=== PATIENT | female | born 1965 | race Caucasian/White ===

== ENCOUNTER 2022-12-06 18:38 | Emergency (ER) | payer BC, SELFPAY ==
[2022-12-06 18:42] VITALS: BP 143/83; PULSE 77; RESP 16; TEMP 36.6; O2SAT 99
--- NOTE | 2022-12-06 19:44 | ED.GENADULT ---
HPI - General Adult General Chief complaint: Extremity Problem,Nontraumatic Stated complaint: left leg swelling/possible DVT Time Seen by Provider: 12/06/22 19:29 History of Present Illness HPI narrative: 57 year old female presented with left lower extremity swelling. Per patient, she has been feeling like her left lower extremity has been more swollen and tight when compared to the right lower extremity. Presented to the ED for further evaluation. She denied fevers/chills, chest pain, shortness of breath, hemoptysis, recent injury to left lower extremity, fevers/chills. Related Data Allergies Allergy/AdvReac Type Severity Reaction Status Date / Time latex Allergy Severe facial Verified 12/06/22 18:39 swelling Penicillins Allergy Unknown Hives Verified 12/06/22 18:39 [facility] Past Medical History Medical History Basal cell carcinoma on scalp (2006) History of inflammation of sacroiliac joint Seasonal allergies Surgical History Surgical History [place] teeth extracted Family History Family History Father Melanoma Hypertension Aortic valve stenosis Thyroid tumor, benign Mother Breast cancer Hypothyroid Grandparent Breast cancer Grandparent Uterine cancer Grandparent Malignant neoplasm of prostate Grandparent Lymphoma Social History Social History (Updated 01/26/22 @ 16:26 by Claire Cochran [facility]) Smoking status: Never smoker Alcohol intake: never Substance use: never Substance use type: does not use Exam Narrative: General: Alert, calm and cooperative, no acute distress, phonating, sitting comfortably during visit HEENT: Pupils equal round and reactive to light, extra ocular movements intact, no conjunctival injection, head atraumatic, neck supple without meningismus Cardiovascular: Regular rate and rhythm, no visible jugular venous distension Respiratory: Lungs clear to auscultation bilaterally, no wheezing/rales/rhonchi Abdominal: soft, non-tender, non-distended, no guarding, no rebound/peritoneal signs, no costovertebral tenderness to palpation Back: no midline tenderness to palpation, no step offs Extremities: No edema, no erythema, no crepitus, soft compartments, palpable peripheral pulses, warm, well perfused, no tenderness to bilateral calves, extension and flexion preserved, full strength throughout Neurological: Alert, moving all extremities symmetrically, ambulating without deficit Course Vital Signs Vital signs: Vital Signs Temperature 97.8 F 12/06/22 18:42 Pulse Rate 77 12/06/22 18:42 Respiratory Rate 16 12/06/22 18:42 Blood Pressure 143/83 H 12/06/22 18:42 Pulse Oximetry 99 12/06/22 18:42 Oxygen Delivery Room Air 12/06/22 18:42 Temperature 97.8 F 12/06/22 18:42 Pulse Rate 77 12/06/22 18:42 Respiratory Rate 16 12/06/22 18:42 Blood Pressure 143/83 H 12/06/22 18:42 Pulse Oximetry 99 12/06/22 18:42 Oxygen Delivery Room Air 12/06/22 18:42 Medical Decision Making MDM Narrative Medical decision making narrative: 57 year old female presented with several days of left lower extremity swelling. Physical exam benign, no significant difference in size compared to right lower extremity, no erythema, no fluctuance, palpable pulses, extremities warm, compartments soft, flexion and extension preserved, full strength throughout, vitals stable. Cellulitis considered, unlikely at this time. DVT considered - will give patient 1mg/kg Lovenox, DVT US was arranged for the morning. Patient expressed understanding. The patient tolerated oral intake, is alert and oriented, speaking with clear speech, ambulated with steady gait, and has remained hemodynamically stable throughout the ED visit. Has close follow up with primary care provider. Areas of diagnostic uncertainty discussed and strict
[2022-12-06] MEDS: ENOXAPARIN 100 MG/ML SYRINGE 88 MG SUB-Q (19:53)
== END 2022-12-06 20:02 | disposition home or self-care (01) ==
LOC: ANHED 19:43
PROVIDERS: Emergency Provider Emergency Medicine; PCP Family Medicine
DX: R22.42 Localized swelling, mass and lump, left lower limb (principal); Z85.828 Personal history of other malignant neoplasm of skin
CPT/HCPCS: 96372; 99283; J1650

== ENCOUNTER 2022-12-07 07:15 | Outpatient (CLI) | payer BC, SELFPAY ==
--- NOTE | ~2022-12-07 | US_ITS ---
EXAMINATION:US venous doppler LE LT INDICATION:Left lower extremity edema TECHNIQUE: Multiple grayscale, color flow and Doppler images of the left lower extremity deep venous systems were obtained and reviewed. COMPARISON:No prior studies for comparison. FINDINGS: The common femoral, superficial femoral and popliteal veins demonstrate normal respiratory variation, augmentation and compressibility. Color flow is also seen within the posterior tibial, pe roneal, greater saphenous and profunda veins. IMPRESSION: 1: No lower extremity deep venous thrombosis. Reviewed, dictated and finalized at location A.
== END 2022-12-07 07:16 | disposition home or self-care (01) ==
PROVIDERS: PCP Family Medicine; Visit Provider Family Medicine
DX: M79.89 Other specified soft tissue disorders (principal)
CPT/HCPCS: 93971

== ENCOUNTER → 2023-03-27 08:20 | Outpatient (CLI) | payer BC, SELFPAY ==
--- NOTE | ~2023-03-27 | MM_ITS ---
EXAMINATION: MM screening melodie BI w merry HISTORY: Screening mammogram TECHNIQUE: Craniocaudal and mediolateral oblique 3-D tomosynthesis images were obtained and synthetic 2-D images were generated. CAD analysis was submitted and interpreted. COMPARISON: 10/04/2011 diagnostic left mammogram 09/12/2011 bilateral screening mammogram BREAST PARENCHYMAL COMPOSITION: There are scattered areas of fibroglandular density. FINDINGS: Scattered bilateral benign calcifications. There is no evidence of suspicious mass, calcifi cation, or architectural distortion to suggest malignancy in either breast. There has been no suspici ous interval change. IMPRESSION: 1. No mammographic evidence of malignancy. 2. Recommend routine screening mammography in one year. BI-RADS Category 2: Benign finding(s). Reviewed, dictated and finalized at location B. DENTIAL SALES REPRESENTATIVE
== END ==
PROVIDERS: PCP Family Medicine; Visit Provider Physician Assistant
DX: Z12.31 Encounter for screening mammogram for malignant neoplasm of breast (principal)
CPT/HCPCS: 77063; 77067

== ENCOUNTER 2023-07-28 19:28 | Emergency (ER) | payer BC, SELFPAY ==
--- NOTE | 2023-07-28 19:41 | ED.FEMALEGU ---
HPI - Female Genitourinary General Chief complaint: Urogenital-Female Stated complaint: UTI symptoms Source: patient and RN notes reviewed Mode of arrival: ambulatory Limitations: no limitations History of Present Illness HPI Narrative: 57-year-old male presented for complaint urinary frequency, urgency, and spasm sensation. Worsening over the past 2 days. Endorses blood in urine today. Denies nausea, vomiting, abdominal pain, flank pain, constipation, diarrhea, fevers or chills. Related Data Allergies Allergy/AdvReac Type Severity Reaction Status Date / Time latex Allergy Severe facial Verified 07/28/23 19:35 swelling Penicillins AdvReac Mild Hives Verified 07/28/23 19:35 Review of Systems Review of Systems: CONSTITUTIONAL: Denies body aches, fever, chills, or sweats. CARDIOVASCULAR: Denies chest pain, palpitations, or edema. RESPIRATORY: Denies cough or dyspnea. GASTROINTESTINAL: Denies abdominal pain, nausea, vomiting, or diarrhea. GENITOURINARY: Reports dysuria, frequency, urgency, hematuria, denies flank pain SKIN: Denies rash, itching, or wounds. MUSCULOSKELETAL: Denies back pain or myalgia. [facility] Past Medical History Medical History Basal cell carcinoma on scalp (2006) History of inflammation of sacroiliac joint Seasonal allergies Surgical History Surgical History [place] teeth extracted Family History Family History Father Melanoma Hypertension Aortic valve stenosis Thyroid tumor, benign Mother Breast cancer Hypothyroid Grandparent Breast cancer Grandparent Uterine cancer Grandparent Malignant neoplasm of prostate Grandparent Lymphoma Social History Social History Smoking status: Never smoker Alcohol intake: never Substance use: never Substance use type: does not use Comments At time of signature, I have reviewed and agree with nursing past medical, surgical, social and family history unless otherwise noted. Please see nursing chart for further information. There is no relevant family history pertinent to the presenting complaint Exam Narrative: GENERAL: Well-appearing ENT: Mucous membranes pink and moist. NECK: Normal AROM. Supple. CHEST: No respiratory distress. Clear to auscultation. HEART: Regular rate and rhythm. ABDOMEN: Soft, nontender, nondistended, normal active bowel sounds. No CVA tenderness SKIN: Warm, dry, no rash. NEURO: No focal deficits. Alert and oriented x3. Gait steady. PSYCH: Normal affect. Course Course Emergency Course: Patient is aware of diagnosis, understands and agrees to treatment plan. Anticipatory guidance given. Patient agrees to follow-up as directed and is aware of reasons to seek care at the emergency department. Portions of this record may have been created with voice recognition software Level of Care: Express Care Visit Vital Signs Vital signs: Reviewed MDM - Female Genitourinary MDM Narrative Medical decision making narrative: Discussed physical exam findings and urine results, reviewed Rx. Advised supportive measures and signs/symptoms to go to the ER. Pt is appropriate for outpt treatment and f/u. Differential Diagnosis Differential diagnosis: Likely urinary tract infection, bacterial vaginosis, vaginitis and cystitis Discharge Plan Discharge Clinical Impression: Urinary tract infection Patient Disposition: Home, Self-Care Condition: Stable Instructions: Antibiotic Form, Urinary Tract Infection in Women (ED) Additional Instructions: Take the antibiotic as prescribed The urine will be sent of for a culture to identify what type of bacteria is causing your infection. If the culture shows that the antibiotic will not get rid of your infection, you will be notif
[2023-07-28 19:45] VITALS: BP 119/68; PULSE 75; RESP 16; TEMP 36.4; O2SAT 100
== END 2023-07-28 20:04 | disposition home or self-care (01) ==
PROVIDERS: Emergency Provider Nurse Practitioner Family; PCP Family Medicine
DX: N39.0 Urinary tract infection, site not specified (principal); B96.4 Proteus (mirabilis) (morganii) as the cause of diseases classified elsewhere; Z85.828 Personal history of other malignant neoplasm of skin
CPT/HCPCS: 81003; 87077; 87086; 87088; 87186; 99213; G0463

== ENCOUNTER 2023-10-19 00:46 | Day surgery (SDC) | payer BC, SELFPAY ==
[2023-10-04 09:55] VITALS: BMI 28.9
[2023-10-19 06:47] VITALS: BP 104/73; PULSE 79; RESP 20; TEMP 36.4; O2SAT 99; BMI 30.2
[2023-10-19] MEDS: LACTATED RINGERS 1,000 ML 150 ML IV CONT (07:05)
--- NOTE | 2023-10-19 07:24 | WPDANESEPPF ---
Anes - Initial Pre Proc Eval Procedure: Operation Date: 10/19/23 08:00 Proposed Procedures p Screening Colonoscopy - Jase Madden MD Date/Time: 10/19/23 07:24 Surgeon: Jase Madden MD Pre Op Diagnosis: neoplasm screening Patient Data Age: 58 Gender: F Height: 1.73 m Weight: 90.1 kg Last Vital Signs Temp 97.5 F L 10/19/23 06:47 Pulse 79 10/19/23 06:47 Resp 20 10/19/23 06:47 BP 104/73 10/19/23 06:47 Pulse Ox 99 10/19/23 06:47 O2 Del Method Room Air 10/19/23 06:47 Allergies Allergy/AdvReac Type Severity Reaction Status Date / Time latex Allergy Severe facial Verified 10/19/23 06:39 swelling Penicillins AdvReac Mild Hives Verified 10/19/23 06:39 Home Medications Medication Instructions Recorded Confirmed Type No Home Medications 10/04/23 10/19/23 History Patient hx anesthesia problems: none Family hx anesthesia problems: none Results Review: All pre-operative results and documents have been reviewed as part of the pre-operative evaluation. [facility] Past Medical History Medical History Basal cell carcinoma on scalp (2006) History of inflammation of sacroiliac joint Seasonal allergies Surgical History Surgical History [place] teeth extracted Family History Family History Father Melanoma Hypertension Aortic valve stenosis Thyroid tumor, benign Mother Breast cancer Hypothyroid Grandparent Breast cancer Grandparent Uterine cancer Grandparent Malignant neoplasm of prostate Grandparent Lymphoma Social History Social History Smoking status: Never smoker Alcohol intake: current Alcohol use details: socially Substance use: never Substance use type: does not use Living arrangements: with family Spiritual care concerns: No Anes - Eval Final PreProcedure Day of Procedure 10/19/23 07:24 Patient weight: obese Heart: regular rate and rhythm Lungs: clear to auscultation Airway: Mallampati scale class II Neurological: alert and oriented Last oral intake: >/= 8 hours ASA classification: II Emergent: no Anesthetic plan: proceed Anesthesia type and monitoring: general GIVS and standard monitoring Results Review: All pre-operative results and documents have been reviewed as part of the pre-operative evaluation. Informed Consent: The patient's anesthetic plan and its attendant risks and benefits were discussed with the patient/family/POA. Questions were solicited and answers provided to the satisfaction of the patient/family/POA.
--- NOTE | 2023-10-19 07:50 | P.HP_ITS ---
History of Present Illness History of Present Illness Consent: Risks, benefits, and alternatives have been discussed and questions answered. Patient agrees to proceed with procedure. Chief complaint: neoplasm screening Narrative: Kamilla Vasquez is a 58 year old female here for screening colonoscopy, last one 7 years ago Review of Systems Review of Systems: All systems reviewed & are unremarkable except as noted in HPI and below PMFSH Past Medical History Medical History (Updated 10/19/23 @ 07:51 by Jase Madden MD) Basal cell carcinoma on scalp (2006) Colon cancer screening History of inflammation of sacroiliac joint Seasonal allergies Surgical History Surgical History [place] teeth extracted Family History Family History Father Melanoma Hypertension Aortic valve stenosis Thyroid tumor, benign Mother Breast cancer Hypothyroid Grandparent Breast cancer Grandparent Uterine cancer Grandparent Malignant neoplasm of prostate Grandparent Lymphoma Social History Social History Smoking status: Never smoker Alcohol intake: current Alcohol use details: socially Substance use: never Substance use type: does not use Living arrangements: with family Spiritual care concerns: No Meds Home Medications and Allergies Home Medications Medication Instructions Recorded Confirmed Type No Home Medications 10/04/23 10/19/23 History Allergies Allergy/AdvReac Type Severity Reaction Status Date / Time latex Allergy Severe facial Verified 10/19/23 06:39 swelling Penicillins AdvReac Mild Hives Verified 10/19/23 06:39 Vital Signs Vital Signs - 24 hr 10/19/23 06:47 Temperature 97.5 F L Pulse Rate 79 Respiratory Rate 20 Blood Pressure 104/73 Pulse Oximetry 99 Oxygen Delivery Room Air Exam Const: General: comfortable and no acute distress HENMT: Face/Nose/Sinus: Normal nares present Eyes: General: appearance normal, both eyes and all related structures Neck: Neck: no JVD Resp: Auscultation: clear to auscultation bilaterally Cardio: Rate: regular rate Rhythm: regular rhythm GI: Inspection: non-distended GI Palp: Yes Soft to palpation Skin: General skin exam: normal color Neuro: General: gait normal Speech: normal speech Extrem: General: normal to inspection Psych: Mental Status: mental status grossly normal Assessment and Plan Assessment and plan (1) Colon cancer screening: Code(s): Z12.11 - Encounter for screening for malignant neoplasm of colon Status: Acute Assessment and Plan: colonoscopy
[2023-10-19 08:07] VITALS: BP 87/60; PULSE 65; RESP 17; O2SAT 98
[2023-10-19 08:17] VITALS: BP 92/55; PULSE 65; RESP 15; O2SAT 100
[2023-10-19 08:27] VITALS: BP 99/58; PULSE 59; RESP 19; O2SAT 100
== END 2023-10-19 08:38 | disposition home or self-care (01) ==
PROVIDERS: PCP Family Medicine; Visit Provider Internal Medicine Gastroenterology
PROC: 0DJD8ZZ Inspection of Lower Intestinal Tract, Via Natural or Artificial Opening Endoscopic (ICD-10-PCS; CPT 45378; principal; 2023-10-19 08:00)
DX: Z12.11 Encounter for screening for malignant neoplasm of colon (principal); D12.3 Benign neoplasm of transverse colon; D17.5 Benign lipomatous neoplasm of intra-abdominal organs; E66.9 Obesity, unspecified; Z68.30 Body mass index [BMI] 30.0-30.9, adult
CPT/HCPCS: 45381; 45385; 88305; J2704; J7120

== ENCOUNTER 2024-05-04 14:24 | Outpatient (CLI) | payer BC, SELFPAY ==
--- NOTE | ~2024-05-04 | MM_ITS ---
EXAMINATION: MM screening melodie BI w merry HISTORY: Screening TECHNIQUE: Craniocaudal and mediolateral oblique 3-D tomosynthesis images were obtained and synthetic 2-D images were generated. CAD analysis was submitted and interpreted. COMPARISON: Comparison to multiple prior studies sequentially, with oldest reviewed study dated 09/11. BREAST PARENCHYMAL COMPOSITION: There are scattered areas of fibroglandular density. FINDINGS: There is no evidence of suspicious mass, calcification, or architectural distortion to sugg est malignancy in either breast. There has been no suspicious interval change. IMPRESSION: 1. No mammographic evidence of malignancy. 2. Recommend routine screening mammography in one year. BI-RADS Category 1: Negative Reviewed, dictated and finalized at location B. S ANALYST
== END 2024-05-04 14:25 | disposition home or self-care (01) ==
LOC: ANHIMG 14:27
PROVIDERS: PCP Family Medicine; Visit Provider Family Medicine
DX: Z12.31 Encounter for screening mammogram for malignant neoplasm of breast (principal)
CPT/HCPCS: 77063; 77067

== ENCOUNTER 2024-05-05 09:24 | Emergency (ER) | payer BC, SELFPAY ==
[2024-05-05 09:28] VITALS: BP 121/77; PULSE 65; RESP 18; TEMP 36.9; O2SAT 100
--- NOTE | 2024-05-05 09:30 | ED.FEMALEGU ---
HPI - Female Genitourinary General Chief complaint: Urogenital-Female Stated complaint: UTI Time Seen by Provider: 05/05/24 09:30 Source: patient Mode of arrival: ambulatory Limitations: no limitations History of Present Illness HPI Narrative: Kamilla is a 58-year-old female patient presenting to the clinic today with complaints of a possible urinary tract infection. She reports symptoms started yesterday with urgency and frequency of urination. Is also reporting some mild low back pain. Noticed some blood in her urine this morning. Denies any fevers, chills, or abdominal pain. Related Data Home Medications ?Medication ?Instructions ?Recorded ?Confirmed ?Last Taken ?Type multivitamin 1 tablet PO DAILY 03/23/24 05/05/24 Unknown History Allergies Allergy/AdvReac Type Severity Reaction Status Date / Time latex Allergy Severe facial Verified 05/05/24 09:47 swelling Penicillins AdvReac Mild Hives Verified 05/05/24 09:47 Review of Systems Review of Systems: Pertinent positives per HPI. Patient denies any fever, chills, rash, headache, visual changes, dizziness, cough, runny nose, sore throat, shortness of breath, chest pain, palpitations, nausea, vomiting, diarrhea, constipation, abdominal pain PMFSH Past Medical History Medical History Colon cancer screening History of inflammation of sacroiliac joint Seasonal allergies Basal cell carcinoma on scalp (2006) Surgical History Surgical History [place] teeth extracted Family History Family History Father Melanoma Hypertension Aortic valve stenosis Thyroid tumor, benign Mother Breast cancer Hypothyroid Grandparent Breast cancer Grandparent Uterine cancer Grandparent Malignant neoplasm of prostate Grandparent Lymphoma Social History Social History Smoking status: Never smoker Alcohol intake: current Alcohol use details: socially Substance use: never Substance use type: does not use Living arrangements: with family Spiritual care concerns: No Comments At the time of my signature, I reviewed and agree with the nursing past medical, surgical, social, and family history. There is no relevant family history pertinent to the patient complaint. Exam Narrative: General: Well-developed, well nourished, in no apparent distress. Head: Normocephalic, atraumatic. Cardio: Regular rate and rhythm, s1 and s2 normal, no murmur appreciated. Resp: Clear to auscultation bilaterally, no rhonchi, rales, wheezing or rubs. Abdomen: Soft, pliable, bowel sounds present in all quadrants, non-tender to palpation, no organomegly, left lower CVAT tenderness. Course Course Emergency Course: Portions of this record may have been created with voice recognition software. Level of Care: Express Care Visit Vital Signs Vital signs: Vital Signs Temperature 36.9 C 05/05/24 09:28 Pulse Rate 65 05/05/24 09:28 Respiratory Rate 18 05/05/24 09:28 Blood Pressure 121/77 05/05/24 09:28 Pulse Oximetry 100 05/05/24 09:28 Oxygen Delivery Room Air 05/05/24 09:28 Temperature 36.9 C 05/05/24 09:28 Pulse Rate 65 05/05/24 09:28 Respiratory Rate 18 05/05/24 09:28 Blood Pressure 121/77 05/05/24 09:28 Pulse Oximetry 100 05/05/24 09:28 Oxygen Delivery Room Air 05/05/24 09:28 Vital signs reviewed MDM - Female Genitourinary MDM Narrative Medical decision making narrative: At the time of visit patient is resting comfortably on the exam table. Patient appears to be nontoxic. Labs: Urinalysis was positive for leukocytes, blood, and protein. We will send urine for culture Plan: I suspect patient has urinary tract infection. Prescription for Bactrim was sent to the pharmacy. Supportive measures were discussed with the patient and they voiced understanding discharge instructions and agrees to treatment plan. Return precautions reviewed Differential Diagnosis Differential diagnosis: Likely urinary tract infection and cystitis Lab Data Labs: Lab Results 05/05/24 Range/Units 09:40 POC Urine Color Ama POC Urine Clarity Cloudy POC Urine pH 6.5 POC Ur Specif [place] 1.025 POC Urine Protein 2+ (Negative) POC Ur Glucose (UA) Negative (Negative) POC Urine Ketones Negative (Negative) POC Urine Blood 3+ (Negative) POC Urine Nitrite Negative (Negative) POC Urine Bilirubin Negative (Negative) POC Urine Urobilinogen 0.2 POC U Leukocyte Esteras Trace (Negative) Discharge Plan Discharge Clinical Impression: UTI (urinary tract infection) Qualifiers: Urinary tract infection type: acute cystitis Hematuria presence: with hematuria Qualified Code(s): N30.01 - Acute cystitis with hematuria Patient Disposition: Home, Self-Care Condition: Stable Instructions: Antibiotic Form, Urinary Tract Infection in Women (ED) Additional Instructions: Urinalysis shows trace of white blood cells, blood, and protein. We will send urine for culture Take Bactrim as prescribed Increase fluids and stay well hydrated Wipe front to back. May use wet wipes. Avoid tub baths If sexually active- pee before and after intercourse. Wear cotton panties Avoid tight clothing up against the genitals Follow up with your PCP in 1 week if symptoms persist. Patient Language: Citizen Of [place] Prescriptions: New sulfamethoxazole-trimethoprim [Bactrim DS] 800-160 mg tablet 1 tablet PO Q12H 5 Days Qty: 10 0RF No Action multivitamin Tablet 1 tablet PO DAILY Follow-up/Referrals: Valarie Weinstein MD [Primary Care Provider] - Time of Disposition: 09:46 Quality NIHSS Nursing Documentation ED NIHSS nursing documentation: reviewed/agree
[2024-05-05 09:51] LABS: EDUAAPPEAR Cloudy; EDUABILI Negative (Negative); EDUABLOOD 3+ (Negative); EDUACOLOR1 Amber; EDUAGLUCOSE Negative (Negative); EDUAKETONE Negative (Negative); EDUALEUKO Trace (Negative); EDUANITRATE Negative (Negative); EDUAPH 6.5; EDUAPROTEIN 2+ (Negative); EDUASPGRAVITY 1.025; EDUAUROBILI 0.2
== END 2024-05-05 09:55 | disposition home or self-care (01) ==
PROVIDERS: Emergency Provider Nurse Practitioner Family; PCP Family Medicine
DX: N30.01 Acute cystitis with hematuria (principal); B96.20 Unspecified Escherichia coli [E. coli] as the cause of diseases classified elsewhere; Z85.828 Personal history of other malignant neoplasm of skin
CPT/HCPCS: 81003; 87077; 87086; 87186; 99213; G0463

== ENCOUNTER 2024-05-09 16:18 | Emergency (ER) | payer BC, SELFPAY ==
--- NOTE | 2024-05-09 16:36 | ED.FEMALEGU ---
HPI - Female Genitourinary General Chief complaint: Urogenital-Female Stated complaint: Blood In Urine Time Seen by Provider: 05/09/24 16:36 Source: patient, RN notes reviewed and old records reviewed Mode of arrival: ambulatory Limitations: no limitations History of Present Illness HPI Narrative: Patient recently treated appropriately with Bactrim DS for UTI presents with concerns that she as not fully over her UTI. She reports that she noticed some blood-tinged tissue upon wiping after urinating earlier today. She does report some continued dysuria. She does report that frequency and urgency have stopped. She denies any fever, chills, sweats. She denies any back pain or abdominal pain. She voices no other concerns or complaints at this time. Related Data Home Medications ?Medication ?Instructions ?Recorded ?Confirmed ?Last Taken ?Type multivitamin 1 tablet PO DAILY 03/23/24 05/09/24 Unknown History Allergies Allergy/AdvReac Type Severity Reaction Status Date / Time latex Allergy Severe facial Verified 05/09/24 16:48 swelling Penicillins AdvReac Mild Hives Verified 05/09/24 16:48 Review of Systems Review of Systems: All systems reviewed & are unremarkable except as noted in HPI and below Constitutional: Constitutional: Reports no additional constitutional complaints ENT: Reports system reviewed and no additional complaints, except as documented Cardiovascular: Cardiovascular: Reports no additional cardiovascular complaints Respiratory: Respiratory: Reports no additional respiratory complaints Gastrointestinal: Gastrointestinal: Reports no additional gastrointestinal complaints Genitourinary: Genitourinary: Reports no additional female genitourinary complaints and Reports as per HPI [facility] Past Medical History Medical History Colon cancer screening History of inflammation of sacroiliac joint Seasonal allergies Basal cell carcinoma on scalp (2006) Surgical History Surgical History [place] teeth extracted Family History Family History Father Melanoma Hypertension Aortic valve stenosis Thyroid tumor, benign Mother Breast cancer Hypothyroid Grandparent Breast cancer Grandparent Uterine cancer Grandparent Malignant neoplasm of prostate Grandparent Lymphoma Social History Social History Smoking status: Never smoker Alcohol intake: current Alcohol use details: socially Substance use: never Substance use type: does not use Living arrangements: with family Spiritual care concerns: No Comments At the time of my signature, I reviewed and agree with the nursing past medical, surgical, social, and family history. There is no relevant family history pertinent to the patient complaint. Exam Const: General: cooperative, no acute distress, alert and awake Orientation/consciousness: oriented to person, oriented to place and oriented to time HENMT: Head: normal to inspection Resp: Effort & Inspection: normal respiratory effort and able to speak in complete sentences Auscultation: clear to auscultation bilaterally, no crackles, no rales, no rhonchi and no wheezes Cardio: Palpation: normal PMI Rate: regular rate Rhythm: regular rhythm Heart sounds: S1 normal heart sound present and S2 normal heart sound present : General: Yes bladder normal to inspection and Yes no CVA tenderness Neuro: General: oriented to person, oriented to place and oriented to time Cranial nerves: Yes CN's II-XII intact bilaterally Psych: Appearance: grossly normal Thought process: Normal thought process present Insight: Good insight present (Psych) Judgement: Good judgement present (Psych) Course Course Level of Care: Express Care Visit Vital Signs Vital signs: Vital Signs Temperature 98.8 F 05/09/24 16:40 Pulse Rate 72 05/09/24 16:40 Respiratory Rate 18 05/09/24 16:40 Blood Pressure 132/76 05/09/24 16:40 Pulse Oximetry 100 05/09/24 16:40 Oxygen Delivery Room Air 05/09/24 16:40 Temperature 98.8 F 05/09/24 16:40 Pulse Rate 72 05/09/24 16:40 Respiratory Rate 18 05/09/24 16:40 Blood Pressure 132/76 05/09/24 16:40 Pulse Oximetry 100 05/09/24 16:40 Oxygen Delivery Room Air 05/09/24 16:40 Reviewed MDM - Female Genitourinary Lab Data Labs: Lab Results 05/09/24 Range/Units 16:40 POC Urine Color Yellow POC Urine Clarity Clear POC Urine pH 6.0 POC Ur Specif [place] 1.010 POC Urine Protein Negative (Negative) POC Ur Glucose (UA) Negative (Negative) POC Urine Ketones Negative (Negative) POC Urine Blood Negative (Negative) POC Urine Nitrite Negative (Negative) POC Urine Bilirubin Negative (Negative) POC Urine Urobilinogen 0.2 POC U Leukocyte Esteras Trace (Negative) Discharge Plan Discharge Clinical Impression: UTI (urinary tract infection) Patient Disposition: Home, Self-Care Condition: Stable Instructions: Antibiotic Form, Urinary Tract Infection in Women (ED) Patient Language: [place] Prescriptions: New sulfamethoxazole-trimethoprim [Bactrim DS] 800-160 mg tablet 1 tablet PO Q12H 3 Days Qty: 6 0RF No Action sulfamethoxazole-trimethoprim [Bactrim DS] 800-160 mg tablet 1 tablet PO Q12H 5 Days Qty: 10 0RF multivitamin Tablet 1 tablet PO DAILY Follow-up/Referrals: Valarie Weinstein MD [Primary Care Provider] - 1 Week Time of Disposition: 17:18
[2024-05-09 16:40] VITALS: BP 132/76; PULSE 72; RESP 18; TEMP 37.1; O2SAT 100
[2024-05-09 20:27] LABS: EDUAAPPEAR Clear; EDUABILI Negative (Negative); EDUABLOOD Negative (Negative); EDUACOLOR1 Yellow; EDUAGLUCOSE Negative (Negative); EDUAKETONE Negative (Negative); EDUALEUKO Trace (Negative); EDUANITRATE Negative (Negative); EDUAPROTEIN Negative (Negative); EDUAUROBILI 0.2
== END 2024-05-09 17:25 | disposition home or self-care (01) ==
PROVIDERS: Emergency Provider Nurse Practitioner Family; PCP Family Medicine
DX: N39.0 Urinary tract infection, site not specified (principal)
CPT/HCPCS: 81003; 87086; 99213; G0463

== ENCOUNTER 2024-07-22 13:45 | Emergency (ER) | payer BC, SELFPAY ==
[2024-07-22 13:54] VITALS: BP 120/66; PULSE 72; RESP 16; TEMP 35.7; O2SAT 99
--- NOTE | 2024-07-22 14:18 | ED_ITS ---
HPI - General Adult General Chief complaint: Unspecified Stated complaint: swollen glands Time Seen by Provider: 07/22/24 14:18 Source: patient, RN notes reviewed and old records reviewed Mode of arrival: ambulatory Limitations: no limitations History of Present Illness HPI narrative: 58 year old female presents to the [facility] with complaints concerns of swollen glands for 2 weeks. States that through her head and neck she feels like her glands are swollen. States that she had flu-like symptoms about a month ago. Denies fevers, denies sore throat, ear pain. Denies any coughs. Onset (ago): week(s) (2) Related Data Home Medications ?Medication ?Instructions ?Recorded ?Confirmed ?Last Taken ?Type multivitamin 1 tablet PO DAILY 03/23/24 07/22/24 Unknown History Allergies Allergy/AdvReac Type Severity Reaction Status Date / Time latex Allergy Severe facial Verified 07/22/24 14:25 swelling Penicillins AdvReac Mild Hives Verified 07/22/24 14:25 Review of Systems Review of Systems: All systems reviewed & are unremarkable except as noted in HPI and below Constitutional: Constitutional: Reports no additional constitutional complaints ENT: Reports system reviewed and no additional complaints, except as documented Cardiovascular: Cardiovascular: Reports no additional cardiovascular complaints, Denies chest pain and Denies dyspnea Respiratory: Respiratory: Reports no additional respiratory complaints, Denies chest congestion, Denies cough and Denies dyspnea Musculoskeletal: Musculoskeletal: Reports no additional musculoskeletal complaints Integumentary/Breasts: Skin/Breast: Reports system reviewed and no additional complaints, except as docu PMFSH Past Medical History Medical History Colon cancer screening History of inflammation of sacroiliac joint Seasonal allergies Basal cell carcinoma on scalp (2006) Surgical History Surgical History [place] teeth extracted Family History Family History Father Melanoma Hypertension Aortic valve stenosis Thyroid tumor, benign Mother Breast cancer Hypothyroid Grandparent Breast cancer Grandparent Uterine cancer Grandparent Malignant neoplasm of prostate Grandparent Lymphoma Social History Social History Smoking status: Never smoker Alcohol intake: current Alcohol use details: socially Substance use: never Substance use type: does not use Living arrangements: with family Spiritual care concerns: No Comments At the time of my signature, I reviewed and agree with the nursing past medical, surgical, social, and family history. There is no relevant family history pertinent to the patient complaint. Exam Const: General: cooperative, healthy appearing, comfortable, no acute distress, well developed, alert and well nourished Nutritional Appearance: well nourished Orientation/consciousness: patient oriented x3 Limitations: no limitations HENMT: Head: normal to inspection Ears: hearing grossly normal bilaterally, external ears normal, TM's normal bilaterally, EAC's normal, mastoids normal and no periauricular adenopathy Mouth: Yes Normal oral and palatal mucosa present, Yes lip normal, Yes tongue normal and Yes moist mucous membranes Throat: posterior oropharynx normal, uvula midline and no uvular edema Eyes: General: appearance normal, both eyes and all related structures Alignment and Position: alignment normal Neck: Neck: normal visual inspection, full ROM, no lymphadenopathy and no meningeal signs Chest: Chest palpation & inspection: normal inspection of the chest Resp: Effort & Inspection: normal respiratory effort and able to speak in complete sentences Auscultation: clear to auscultation bilaterally, no crackles, no rales, no rhonchi and no wheezes Cardio: Rate: regular rate Skin: General skin exam: normal color and no rashes or lesions noted Neuro: General: patient oriented x3, gait normal, moves all extremities and no meningeal signs Cognition (Neuro): normal cognition Speech: normal speech Gait exam (Neuro): Normal gait present Extrem: General: normal to inspection, full ROM, capillary refill normal and normal gait Psych: Appearance: grossly normal and well kempt Mental Status: mental status grossly normal Speech and movement: Normal speech and movement present and Clear speech present Affect: normal affect Attitude: cooperative Course Course Level of Care: Express Care Visit Vital Signs Vital signs: Vital Signs Temperature 96.2 F L 07/22/24 13:54 Pulse Rate 72 07/22/24 13:54 Respiratory Rate 16 07/22/24 13:54 Blood Pressure 120/66 07/22/24 13:54 Pulse Oximetry 99 07/22/24 13:54 Oxygen Delivery Room Air 07/22/24 13:54 Temperature 96.2 F L 07/22/24 13:54 Pulse Rate 72 07/22/24 13:54 Respiratory Rate 16 07/22/24 13:54 Blood Pressure 120/66 07/22/24 13:54 Pulse Oximetry 99 07/22/24 13:54 Oxygen Delivery Room Air 07/22/24 13:54 Reviewed Medical Decision Making MDM Narrative Medical decision making narrative: Patient sitting comfortably in exam room. Nontoxic, vitals stable. Patient in no acute distress. Patient presents with concerns of swollen lymph nodes, none appreciated on exam. Strep test is negative Patient exam with no acute findings Patient appropriate for outpatient and follow-up Discharge instructions reviewed with patient, as well as provided in writing per nursing staff. The instructions also include specific and strict return/GO TO THE ER as well as f/u information. All questions have been answered, and the patient deny any further questions with discharge and discharge plan. Some parts of this dictation were generated by voice recognition software and may contain typographical and/or grammatical inaccuracies. Differential Diagnosis Differential Diagnosis: Lymphadenopathy, strep, URI, mono, allergies, viral infection Medical Records Medical records reviewed: Yes I reviewed the external patient's medical records. Vital Signs Vital Signs: Vital Signs Temperature 96.2 F L 07/22/24 13:54 Pulse Rate 72 07/22/24 13:54 Respiratory Rate 16 07/22/24 13:54 Blood Pressure 120/66 07/22/24 13:54 Pulse Oximetry 99 07/22/24 13:54 Oxygen Delivery Room Air 07/22/24 13:54 Temperature 96.2 F L 07/22/24 13:54 Pulse Rate 72 07/22/24 13:54 Respiratory Rate 16 07/22/24 13:54 Blood Pressure 120/66 07/22/24 13:54 Pulse Oximetry 99 07/22/24 13:54 Oxygen Delivery Room Air 07/22/24 13:54 Reviewed Lab Data Lab results reviewed: Yes I reviewed the patient's lab results. Labs: Lab Results 07/22/24 Range/Units 14:54 POC Grp A Strep Screen Negative (Negative) Reviewed Critical Care Time Critical Care Time Critical Care Time: No Discharge Plan Discharge Clinical Impression: Hx of lymphadenopathy Patient Disposition: Home, Self-Care Condition: Stable Instructions: Antibiotic Form, Lymphadenopathy (ED) Additional Instructions: Your rapid strep swab was negative today at [facility]. A throat culture will be sent to the laboratory for further testing. If the test is positive, you will receive a phone call within 48 hours and an appropriate antibiotic will be initiated at that time. Take Tylenol as needed for pain Follow-up with primary care provider if symptoms persist For new or worsening symptoms please proceed to the emergency room Patient Language: Welsh Prescriptions: No Action multivitamin Tablet 1 tablet PO DAILY Follow-up/Referrals: Valarei Weinstein MD [Primary Care Provider] - 2 Weeks (express care follow up ) Stand Alone Forms: Work/School Release IP Time of Disposition: 14:55
[2024-07-22 14:55] LABS: EDSTREPNEGPOS1 Negative (Negative)
== END 2024-07-22 15:00 | disposition home or self-care (01) ==
PROVIDERS: Emergency Provider Nurse Practitioner; PCP Family Medicine
DX: R59.0 Localized enlarged lymph nodes (principal)
CPT/HCPCS: 87081; 87880; 99213; G0463

== ENCOUNTER 2025-05-07 08:48 | Outpatient (CLI) | payer BC, SELFPAY ==
--- NOTE | ~2025-05-07 | MM_ITS ---
EXAMINATION: MM screening melodie BI w merry HISTORY: Screening. TECHNIQUE: Craniocaudal and mediolateral oblique 3-D tomosynthesis images were obtained and synthetic 2-D images were generated. CAD analysis was submitted and interpreted. COMPARISON: 2023 and 2022 BREAST PARENCHYMAL COMPOSITION: Not Dense: There are scattered areas of fibroglandular tissue FINDINGS: No suspicious masses are seen. There are no suspicious calcifications. No unexplained architectural distortion is seen. There are no skin or nipple abnormalities identified. There is no adenopathy seen on the images submitted. IMPRESSION: No mammographic evidence to suggest malignancy is seen. The patient may return to screening mammography as per ACR guidelines. BI-RADS 1 - Negative. Reviewed, dictated and finalized at location [facility]
== END 2025-05-07 08:49 | disposition home or self-care (01) ==
LOC: ANHFOHIMG 08:51
PROVIDERS: PCP Family Medicine; Visit Provider Nurse Practitioner Obstetrics & Gynecology
DX: Z12.31 Encounter for screening mammogram for malignant neoplasm of breast (principal)
CPT/HCPCS: 77063; 77067